=== PATIENT | male | born 1985 | race Two or more races ===

== ENCOUNTER → 2020-09-05 | Day surgery (SDC) | payer BC ==
[~2020-09-05] VITALS: Ht 177.8 cm; Wt 84.4 kg
[~2020-09-05] MED LIST: GLUCAGON HYDROCHLORIDE (RDNA) 1 MG VIAL IV ONE; LACTATED RINGER'S 1,000 ML IV ONE; SODIUM CHLORIDE LOCK 10 ML ONE; diphenhdrAMINE HCL 50 MG/1 ML VL ONE
[2020-09-05 05:08] LABS: Basophils # (auto) 0 10 ^3/uL (0-0.2); Basophils % (auto) 0.4 % (0.0-2.0); Eosinophils # (auto) 0.6 10 ^3/uL (0-0.8); Eosinophils % (auto) 7.4 % (0.0-7.0); Hemoglobin 13.9 g/dL (13.5-17.5); Lymphocytes # (auto) 2.4 10 ^3/uL (0.4-5.4); Lymphocytes % (auto) 27.8 % (10.0-50.0); Mean Corpuscular Hemoglobin 28.7 pg (28.0-32.0); Mean Corpuscular Hgb Conc. 34.7 g/dL (32.0-36.0); Mean Corpuscular Volume 82.6 fL (80.0-100.0); Monocytes # (auto) 0.8 10 ^3/uL (0-1.3); Monocytes % (auto) 9.3 % (0.0-12.0); Neutrophils # (auto) 4.7 10 ^3/uL (1.6-8.6); Neutrophils % (auto) 55.1 % (37.0-80.0); Nucleated Red Blood Cells % 0.1 %; Platelet Count (auto) 235 10^3/uL (140-450); Red Blood Cells 4.84 10^6/uL (4.5-5.90); Red Cell Distribution Width 14.1 % (11.8-14.3); White Blood Cell 8.6 10^3/uL (4.4-10.8)
[2020-09-05 05:20] LABS: Albumin 3.7 g/dL (3.4-5.0); Anion Gap 7 (5-15); Blood Urea Nitrogen 15 mg/dL (7-18); Carbon Dioxide 23 mmol/L (21-32); Chloride 110 mmol/L (98-107); Glucose 99 mg/dL (74-106); Potassium 3.2 mmol/L (3.5-5.1); Sodium 140 mmol/L (136-145)
[2020-09-05 05:26] LABS: INR 1.03 (0.9-1.15)
[2020-09-05 05:28] LABS: Alanine Aminotransferase 62 U/L (16-61); Alkaline Phosphatase 84 U/L (45-117); Aspartate Aminotransferase 40 U/L (15-37); Bilirubin, Total 0.4 mg/dL (0.2-1.0); GFR African American 126 mL/min; GFR Non-African American 104 mL/min; Total Protein 7.3 g/dL (6.4-8.2)
[2020-09-05] MEDS: fentaNYL CITRATE 100 MCG/2 ML VL ONE ×2 (09:19→09:22)
[2020-09-05] MEDS: MIDAZOLAM HCL 5 MG/ML-1ML VIAL ONE ×2 (09:19→09:22)
[2020-09-05 12:26] VITALS: BP 114/75
== END | disposition home or self-care (01) ==
LOC: ER 02:31 → SUR 02:32 → ER 13:10
PROVIDERS: ATTEND Emergency Medicine
DX: T18.128A Food in esophagus causing other injury, initial encounter (principal); K22.2 Esophageal obstruction; K20.0 Eosinophilic esophagitis; K50.90 Crohn's disease, unspecified, without complications; K92.9 Disease of digestive system, unspecified; Z20.822 Contact with and (suspected) exposure to COVID-19; K31.89 Other diseases of stomach and duodenum; K44.9 Diaphragmatic hernia without obstruction or gangrene; X58.XXXA Exposure to other specified factors, initial encounter; Y93.9 Activity, unspecified; Y92.89 Other specified places as the place of occurrence of the external cause; Y99.8 Other external cause status; Y93.89 Activity, other specified
CPT/HCPCS: 36415; 43239; 70490; 71045; 80053; 83735; 84484; 85025; 85610; 87426; 88305; 93005; J1200; J1610; J2250; J3010; J7030; 99152

== ENCOUNTER 2021-07-01 22:10 | Emergency (ER) | payer BC ==
[~2021-07-01] VITALS: Ht 177.8 cm; Wt 86.2 kg
[2021-07-02] MEDS ORDERED: GLUCAGON HYDROCHLORIDE (RDNA) 1 MG VIAL IM ONE (00:45)
[2021-07-02] MEDS ORDERED: GLUCAGON HYDROCHLORIDE (RDNA) 1 MG VIAL IV ONE (01:00)
[2021-07-02 01:11] VITALS: BP 119/55
== END 2021-07-02 01:13 | disposition home or self-care (01) ==
LOC: ER 22:11
DX: T18.108A Unspecified foreign body in esophagus causing other injury, initial encounter (principal); M54.2 Cervicalgia; F17.210 Nicotine dependence, cigarettes, uncomplicated; X58.XXXA Exposure to other specified factors, initial encounter; Y93.9 Activity, unspecified; Y99.8 Other external cause status; Y92.89 Other specified places as the place of occurrence of the external cause
CPT/HCPCS: 70490; 96374; 99284; J1610